=== PATIENT | female | born 1990 | race Caucasian/White ===

== ENCOUNTER 2019-02-04 05:30 | Emergency (ER) | payer OTHER ==
[~2019-02-04] VITALS: Ht 162.6 cm; Wt 56.7 kg
[2019-02-04 05:35] VITALS: BP 136/65
--- NOTE | 2019-02-04 05:40 | NUR ---
PT TAKEN TO BED 4
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
[2019-02-04] MEDS ORDERED: KETOROLAC 60 MG/2 ML VIAL IM ONE (06:00)
--- NOTE | 2019-02-04 06:21 | NUR ---
ERMD EVALUATING PATIENT AT BEDSIDE.
--- NOTE | 2019-02-04 06:26 | NUR ---
X-RAY AT BEDSIDE.
[2019-02-04 06:34] VITALS: BP 136/65
--- NOTE | 2019-02-04 06:34 | NUR ---
Patient discharged with v/s stable. Written and verbal after care instructions given and explained. Patient alert, oriented and verbalized understanding of instructions. Ambulatory with steady gait. All questions addressed prior to discharge. ID band removed. Patient advised to follow up with PMD. Rx of MOTRIN 600MG given. Patient educated on indication of medication including possible reaction and side effects. Opportunity to ask questions provided and answered.
== END 2019-02-04 06:34 | disposition home or self-care (01) ==
LOC: MED 05:30
DX: S60.221A Contusion of right hand, initial encounter (principal); F17.200 Nicotine dependence, unspecified, uncomplicated; X58.XXXA Exposure to other specified factors, initial encounter; Y93.89 Activity, other specified; Y92.810 Car as the place of occurrence of the external cause; Y99.8 Other external cause status
CPT/HCPCS: 73130; 96372; 99283; J1885; Q0092

== ENCOUNTER 2019-03-31 13:58 | Emergency (ER) | payer OTHER | END 2019-03-31 16:00 | disposition left against medical advice (07) | LOC: MED 13:58 | DX: M54.9 Dorsalgia, unspecified (principal); Z53.21 Procedure and treatment not carried out due to patient leaving prior to being seen by health care provider ==

== ENCOUNTER 2019-07-03 16:14 | Emergency (ER) | payer OTHER ==
[~2019-07-03] VITALS: Ht 162.6 cm; Wt 56.7 kg
[2019-07-03 16:18] VITALS: BP 120/80
[2019-07-03 17:02] LABS: APPEARANCE,URINE CLOUDY (CLEAR); BILIRUBIN,URINE NEGATIVE (NEGATIVE); BLOOD, URINE NEGATIVE (NEGATIVE); COLOR,URINE YELLOW (YELLOW); LEUKOCYTE ESTERASE ,URINE 2+ (NEGATIVE); NITRITE, URINE NEGATIVE (NEGATIVE); UGLUCOSE NEGATIVE (NEGATIVE)
[2019-07-03 17:29] LABS: RBC,URINE 0-5 /HPF (0-5); WBC,URINE 20-60 /HPF (0-5)
[2019-07-03 17:30] LABS: TRICHOMONAS,URINE Moderate /HPF (None Seen)
[2019-07-03] MEDS ORDERED: metroNIDAZOLE 250 MG TAB PO ONE (17:40)
[2019-07-03 17:55] LABS: BARBITURATE, URINE NEGATIVE ng/ml (NEG <=200); BENZODIAZEPINE, URINE POSITIVE ng/mL (NEG <=200); CANNABINOID, URINE NEGATIVE ng/mL (NEG <=50); COCAINE, URINE NEGATIVE ng/mL (NEG <=300); OPIATE, URINE POSITIVE ng/mL (NEG <=2000); PHENCYCLIDINE SCREEN,URINE NEGATIVE ng/mL (NEG <=25)
== END 2019-07-03 17:40 | disposition left against medical advice (07) ==
LOC: MED 16:14
DX: A59.01 Trichomonal vulvovaginitis (principal); F17.210 Nicotine dependence, cigarettes, uncomplicated; F19.10 Other psychoactive substance abuse, uncomplicated
CPT/HCPCS: 36415; 80305; 81001; 87086; 87186; 99283